=== PATIENT | female | born 1955 | race Caucasian/White ===

== ENCOUNTER 2021-05-06 10:22 | Observation (INO) | payer MEDICARE ==
[2021-05-06] MEDS ORDERED: Ketorolac 15 MG/ML SDV IVPUSH ONE (10:38)
[2021-05-06] MEDS ORDERED: Dextrose 5%-Lactated Ringers 1,000 ML IV SCH (10:45)
[2021-05-06 11:23] LABS: CORONAVIRUS COVID-19 NAA POSITIVE (NEGATIVE); INFLUENZA A NAA NEGATIVE (NEGATIVE); INFLUENZA B NAA NEGATIVE (NEGATIVE)
--- NOTE | 2021-05-06 11:26 | CR ---
INDICATION: Hypoxia TECHNIQUE: Single view chest. FINDINGS: Low lung volumes. Right hemidiaphragm elevated. Normal cardiac mediastinal silhouette. Right peripheral lower lobe increased attenuation could be related to overlying soft tissues versus infiltrate. Left lung is clear no effusion or pneumothorax. Dictated by Megan Gambino MD @ 05/06/2021 11:25:33 AM (Electronically Signed)
--- NOTE | 2021-05-06 11:30 | EDM.PDOC ---
ED HPI GENERAL MEDICAL PROBLEM - General Chief Complaint: General Time Seen by Provider: 05/06/21 10:28 - History of Present Illness INITIAL COMMENTS - FREE TEXT/NARRATIVE: CHIEF COMPLAINT(S): Weakness HISTORY OF PRESENT ILLNESS: This is a 65-year-old woman without any significant past medical history who comes to the emergency department with a chief complaint of weakness. The patient states that for the last 10 days she has been experiencing weakness. She states that she has not been able to tolerate any food and feels extremely weak. She denies any chest pain or shortness of breath but states that she does have some body aches. She states that she has had continued headache which is bifrontal not associated with any numbness, tingling, weakness, vision changes. She states that she has had some occasional chills and some nonbloody diarrhea. She states that she feels like she just does not want to eat or drink. She has not yet tried anything for headache. There is no neck stiffness or pain. She denies any IV drug use. She states that she has not received her Covid vaccine. She does not know if she has been exposed to Covid. REVIEW OF SYSTEMS: Constitutional: Positive for weakness and chills. Denies fever Eyes: Denies eye pain Ears, Nose, Mouth, & Throat: Denies earache Cardiovascular: Denies chest pain Respiratory: Denies shortness of breath Gastrointestinal: Positive for anorexia, diarrhea. Denies vomiting genitourinary: Denies hematuria, dysuria Skin:Denies a rash MSK: Positive for body aches Neurological: Positive for headache. Denies vision changes, numbness, tingling, weakness Psychiatric: Denies depression PAST MEDICAL HISTORY: As per history of present illness and as reviewed below otherwise noncontributory. SURGICAL HISTORY: As per history of present illness and as reviewed below otherwise noncontributory. SOCIAL HISTORY: As per history of present illness and as reviewed below otherwise noncontributory. FAMILY HISTORY: As per history of present illness and as reviewed below otherwise noncontributory. EXAMINATION OF ORGAN SYSTEMS/BODY AREAS: Constitutional: Blood pressure was 135/66, heart rate 88, respiratory rate 20 with an oxygen saturation of 94% on room air. Temperature 36.3 General: Middle-aged woman who does not appear to be acute distress Psychiatric: Appropriate mood and affect. Eyes: No scleral icterus or conjunctival erythema ENMT: Dry mucous membranes. No pharyngeal erythema. No stridor, drooling, trismus. Cardiovascular: Regular, rate, and rhythm. No gallops, murmurs, or rubs. Bilateral upper extremity pulses symmetric and intact. No peripheral edema. No JVD. Respiratory: Lungs clear to auscultation bilaterally. No wheezes, rales, or rhonchi. Gastrointestinal: Soft, non-tender, non-distended. Normoactive bowel sounds Genitourinary: No suprapubic tenderness Musculoskeletal: Normal range of motion. Skin: No lesions or abrasions. Neurological: Alert, GCS 15 strength and sensation grossly intact in upper and lower extremities bilaterally MEDICAL DECISION MAKING AND COURSE IN THE ED WITH INTERPRETATION/REVIEW OF DIAGNOSTIC STUDIES: This is a 65-year-old woman with a past medical history of hypothyroidism who comes to the emergency department with weakness including headache, chills, diarrhea and anorexia who is borderline hypoxic and appears clinically dehydrated. Will obtain CBC, CMP, troponin, EKG, TSH and obtain a Covid and influenza swab. Obtain a chest x-ray. EKG was unremarkable. We will provide the patient with Toradol for pain relief and 1 L of D5 normal saline. Laboratory: CBC reveals thrombocytopenia at 149. CMP reveals hypocalcemia at 7.3, mild elevation AST at 40, hypoalbuminemia at 2.9. Troponin is negative. TSH is normal. Covid is positive. Influenza is negative. The radiological images were viewed by myself along with reading the report from the radiologist. Chest x-ray does not reveal any acute cardiopulmonary process. There is right peripheral lower lobe increased attenuation could be related to overlying soft tissue versus infiltrate. After labs I did reevaluate the patient. Her oxygen saturation continued to remain stable. I did discuss with her at this time that she is Covid positive and that I would like her to try to tolerate some p.o. She was amenable to this plan. On reevaluation the patient states that she does not have any interest in trying to drink any fluids. At this time given that the patient is unable to tolerate fluids and is weak from COVID-19 I did discuss observation admission with the patient. She was amenable to this plan. I contacted Dr. Watson who accepted the patient for observation admission DISPOSITION: The patient is admitted for observation in stable condition CONDITION: Fair PROCEDURES: None FINAL IMPRESSION(S)/DIAGNOSES: 1. Acute COVID-19 2. Acute anorexia 3. Acute diarrhea Mikael Sheridan M.D. 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 Neurological History: Reports: None Psychiatric History: Reports: None Endocrine/Metabolic History: Reports: None Hematologic History: Reports: None Immunologic History: Reports: None Oncologic (Cancer) History: Reports: None Dermatologic History: Reports: None - Infectious Disease History Infectious Disease History: Reports: None - Past Surgical History Head Surgeries/Procedures: Reports: None Social & Family History - Family History Family Medical History: No Pertinent Family History - Tobacco Use Tobacco Use Status *Q: Never Tobacco User Second Hand Smoke Exposure: No - Caffeine Use Caffeine Use: Reports: None - Recreational Drug Use Recreational Drug Use: No ED ROS GENERAL - Review of Systems Review Of Systems: See Below ED EXAM, GENERAL - Physical Exam Exam: See Below Course - Vital Signs Last Recorded V/S: Last Vital Signs Temp 36.7 C 05/06/21 19:48 Pulse 63 05/06/21 19:48 Resp 18 05/06/21 19:48 BP 115/56 L 05/06/21 19:48 Pulse Ox 95 05/06/21 19:48 - Orders/Labs/Meds Orders: Active Orders 24 hr Category Date Time Status Dextrose 5%-Lactated Ringers 1,000 ml Med 05/06/21 10:45 Active IV ASDIRECTED Medication Orders Acetaminophen (Acetaminophen 325 Mg Tab) 650 mg PO Q4H PRN PRN Reason: Pain (Mild 1-3)/fever Last Admin: 05/06/21 16:51 Dose: 650 mg Documented by: BHAVIN Albuterol/Ipratropium (Albuterol/Ipratropium 3.0-0.5 Mg/3 Ml Neb Soln) 3 ml NEB Q4HRRT PRN PRN Reason: Shortness of Breath Enoxaparin Sodium (Enoxaparin 40 Mg/0.4 Ml Syringe) 40 mg SUBCUT Q24H [facility] Last Admin: 05/06/21 15:50 Dose: 40 mg Documented by: BHAVIN Guaifenesin/Dextromethorphan (Guaifenesin/Dextromethorphan 100-10 Mg/5 Ml Soln 10 Ml Cup) 10 ml PO Q4H PRN PRN Reason: Cough Dextrose/Lactated Ringer's (Dextrose 5%-Lactated Ringers) 1,000 mls @ 999 mls/hr IV ASDIRECTED [facility] Last Admin: 05/06/21 11:39 Dose: 999 mls/hr Documented by: BRADFORD Ondansetron HCl (Ondansetron 4 Mg/2 Ml Sdv) 4 mg IVPUSH Q4H PRN PRN Reason: Nausea/Vomiting Last Admin: 05/06/21 15:50 Dose: 4 mg Documented by: BHAVIN Pantoprazole Sodium (Pantoprazole 40 Mg Vial) 40 mg IV Q24H [facility] Last Admin: 05/06/21 15:50 Dose: 40 mg Documented by: BHAVIN Labs: Laboratory Tests 05/06/21 05/06/21 05/06/21 Range/Units 10:29 10:29 10:29 WBC 4.97 (4.0-11.0) K/uL RBC 4.49 (4.30-5.90) M/uL Hgb 13.9 (12.0-16.0) g/dL Hct 40.2 (36.0-46.0) % MCV 89.5 (80.0-98.0) fL MCH 31.0 (27.0-32.0) pg MCHC 34.6 (31.0-37.0) g/dL RDW Std Deviation 45.1 (28.0-62.0) fl RDW Coeff of Hiral 14 (11.0-15.0) % Plt Count 149 L (150-400) K/uL MPV 9.60 (7.40-12.00) fL Neut % (Auto) 60.7 (48.0-80.0) % Lymph % (Auto) 29.2 (16.0-40.0) % [place] % (Auto) 9.9 (0.0-15.0) % Eos % (Auto) 0.0 (0.0-7.0) % Baso % (Auto) 0.2 (0.0-1.5) % Neut # (Auto) 3.0 (1.4-5.7) K/uL Lymph # (Auto) 1.5 (0.6-2.4) K/uL [place] # (Auto) 0.5 (0.0-0.8) K/uL Eos # (Auto) 0.0 (0.0-0.7) K/uL Baso # (Auto) 0.0 (0.0-0.1) K/uL Nucleated RBC % 0.0 /100WBC Nucleated RBCs # 0 K/uL Sodium 141 (136-145) mmol/L Potassium 3.5 (3.5-5.1) mmol/L Chloride 104 (98-107) mmol/L Carbon Dioxide 25.6 (21.0-32.0) mmol/L BUN 9 (7.0-18.0) mg/dL Creatinine 0.6 (0.6-1.0) mg/dL Est Cr Clr Drug Dosing 75.26 mL/min Estimated GFR (MDRD) > 60.0 ml/min Glucose 101 (74-106) mg/dL Calcium 7.3 L (8.5-10.1) mg/dL Magnesium 2.1 (1.8-2.4) mg/dL Total Bilirubin 0.3 (0.2-1.0) mg/dL AST 40 H (15-37) IU/L ALT 39 (14-63) IU/L Alkaline Phosphatase 62 (46-116) U/L Troponin I < 0.050 (0.000-0.056) ng/mL Total Protein 6.7 (6.4-8.2) g/dL Albumin 2.9 L (3.4-5.0) g/dL Globulin 3.8 (2.6-4.0) g/dL Albumin/Globulin Ratio 0.8 L (0.9-1.6) Lipase 94 (73-393) U/L Vitamin D 25-Hydroxy (30.0-100.0) ng/mL TSH, Ultra Sensitive 3.38 (0.36-3.74) uIU/mL Influenza Type A RNA (NEGATIVE) Influenza Type B RNA (NEGATIVE) SARS-CoV-2 RNA ([facility]) (NEGATIVE) 05/06/21 05/06/21 Range/Units 10:29 10:30 WBC (4.0-11.0) K/uL RBC (4.30-5.90) M/uL Hgb (12.0-16.0) g/dL Hct (36.0-46.0) % MCV (80.0-98.0) fL MCH (27.0-32.0) pg MCHC (31.0-37.0) g/dL RDW Std Deviation (28.0-62.0) fl RDW Coeff of Hiral (11.0-15.0) % Plt Count (150-400) K/uL MPV (7.40-12.00) fL Neut % (Auto) (48.0-80.0) % Lymph % (Auto) (16.0-40.0) % [place] % (Auto) (0.0-15.0) % Eos % (Auto) (0.0-7.0) % Baso % (Auto) (0.0-1.5) % Neut # (Auto) (1.4-5.7) K/uL Lymph # (Auto) (0.6-2.4) K/uL [place] # (Auto) (0.0-0.8) K/uL Eos # (Auto) (0.0-0.7) K/uL Baso # (Auto) (0.0-0.1) K/uL Nucleated RBC % /100WBC Nucleated RBCs # K/uL Sodium (136-145) mmol/L Potassium (3.5-5.1) mmol/L Chloride (98-107) mmol/L Carbon Dioxide (21.0-32.0) mmol/L BUN (7.0-18.0) mg/dL Creatinine (0.6-1.0) mg/dL Est Cr Clr Drug Dosing mL/min Estimated GFR (MDRD) ml/min Glucose (74-106) mg/dL Calcium (8.5-10.1) mg/dL Magnesium (1.8-2.4) mg/dL Total Bilirubin (0.2-1.0) mg/dL AST (15-37) IU/L ALT (14-63) IU/L Alkaline Phosphatase (46-116) U/L Troponin I (0.000-0.056) ng/mL Total Protein (6.4-8.2) g/dL Albumin (3.4-5.0) g/dL Globulin (2.6-4.0) g/dL Albumin/Globulin Ratio (0.9-1.6) Lipase (73-393) U/L Vitamin D 25-Hydroxy 22.9 L (30.0-100.0) ng/mL TSH, Ultra Sensitive (0.36-3.74) uIU/mL Influenza Type A RNA NEGATIVE (NEGATIVE) Influenza Type B RNA NEGATIVE (NEGATIVE) SARS-CoV-2 RNA ([facility]) POSITIVE H (NEGATIVE) Meds: Medications Generic Name Dose Route Start Last Admin Trade Name Freq PRN Reason Stop Dose Admin Acetaminophen 650 mg 05/06/21 15:10 05/06/21 16:51 Acetaminophen 325 Mg Tab PO 650 mg Q4H PRN Administration Pain (Mild 1-3)/fever Albuterol/Ipratropium 3 ml 05/06/21 15:13 Albuterol/Ipratropium 3.0-0.5 Mg/3 Ml Neb Soln NEB Q4HRRT PRN Shortness of Breath Enoxaparin Sodium 40 mg 05/06/21 16:00 05/06/21 15:50 Enoxaparin 40 Mg/0.4 Ml Syringe SUBCUT 40 mg Q24H KIMBERLEY Administration Guaifenesin/Dextromethorphan 10 ml 05/06/21 15:14 Guaifenesin/Dextromethorphan 100-10 Mg/5 Ml Soln 10 Ml Cup PO Q4H PRN Cough Dextrose/Lactated Ringer's 1,000 mls @ 999 mls/hr 05/06/21 10:45 05/06/21 11:39 Dextrose 5%-Lactated Ringers IV 999 mls/hr ASDIRECTED KIMBERLEY Administration Ondansetron HCl 4 mg 05/06/21 15:13 05/06/21 15:50 Ondansetron 4 Mg/2 Ml Sdv IVPUSH 4 mg Q4H PRN Administration Nausea/Vomiting Pantoprazole Sodium 40 mg 05/06/21 16:00 05/06/21 15:50 Pantoprazole 40 Mg Vial IV 40 mg Q24H KIMBERLEY Administration Discontinued Medications Generic Name Dose Route Start Last Admin Trade Name Lionel PRN Reason Stop Dose Admin Lactated Ringer's 1,000 mls @ 150 mls/hr 05/06/21 13:30 05/06/21 15:51 Ringers, Lactated IV 150 mls/hr ASDIRECTED KIMBERLEY Administration Ketorolac Tromethamine 15 mg 05/06/21 10:38 05/06/21 11:39 Ketorolac 15 Mg/Ml Sdv IVPUSH 05/06/21 10:39 15 mg ONETIME ONE Administration Departure - Departure Time of Disposition: 13:13 Disposition: Home, Self-Care 01 Condition: Fair Clinical Impression: COVID-19 - Discharge Information *PRESCRIPTION DRUG MONITORING PROGRAM REVIEWED*: No *COPY OF PRESCRIPTION DRUG MONITORING REPORT IN PATIENT EUNICE: No Sepsis Event Note (ED) - Evaluation Sepsis Screening Result: No Definite Risk - Focused Exam Vital Signs: Vital Signs Temp Pulse Resp BP Pulse Ox 05/06/21 12:50 36.8 C 84 20 121/71 96 05/06/21 11:40 68 20 124/71 96 05/06/21 10:27 36.3 C 88 20 135/66 94 L - My Orders Last 24 Hours: My Active Orders 05/06/21 10:45 Dextrose 5%-Lactated Ringers 1,000 ml IV ASDIRECTED - Assessment/Plan Last 24 Hours: My Active Orders 05/06/21 10:45 Dextrose 5%-Lactated Ringers 1,000 ml IV ASDIRECTED
--- NOTE | 2021-05-06 11:31 | PCM.EKG ---
#1 Interpretation EKG Date: 05/06/21 Time: 11:23 Rhythm: NSR Rate (Beats/Min): 73 [place]: Normal P-Wave: Present QRS: Normal ST-T: Normal QT: Normal Comparison: NA - No Prior EKG EKG Interpretation Comments: Sinus Rhythm
[2021-05-06 11:35] LABS: BLOOD UREA NITROGEN,BUN 9 mg/dL (7.0-18.0); CARBON DIOXIDE,CO2 25.6 mmol/L (21.0-32.0); CHLORIDE,CL 104 mmol/L (98-107); GLUCOSE RANDOM 101 mg/dL (74-106); LIPASE 94 U/L (73-393); POTASSIUM,K 3.5 mmol/L (3.5-5.1); SODIUM,NA 141 mmol/L (136-145)
[2021-05-06] MEDS ORDERED: Lactated Ringers 1,000 ML IV SCH (13:30)
--- NOTE | 2021-05-06 14:47 | PCM.HP.2 ---
H&P History of Present Illness - General Date of Service: 05/06/21 Admit Problem/Dx: Admission Diagnosis/Problem Admission Diagnosis/Problem Weakness - History of Present Illness Initial Comments - Free Text/Narative: 65-year-old female presents to the ED with complaints of fatigue and poor oral intake. Patient admitted to med/surg for intractable nausea and vomiting, dehydration, COVID-19 infection. Patient states attending her 's family reunion "over a week ago " and may have gotten covid infection at that time. On admission patient states 10-day history of headache, chills, vomiting, diarrhea, cough, headache. Patient also states poor appetite with weight loss. Patient states yesterday she had 3 bites of a sandwich which she had to "force down". Patient has been tolerating oral liquids but states that not drinking enough. Patient denies chest pain, shortness of breath. Patient's only past medical includes hypothyroidism treated with levothyroxine. Patient has no recent history of smoking. Patient denies cardiovascular, respiratory, diseases. ER course- Patient received 1 L LR, 1 L D5-LR, IV Toradol 15mg X 1. Laboratory- WBC 4.9, hemoglobin 13.9, platelet 149, hematocrit 40.2, sodium 141, potassium 3.5, BUN 9, creatinine 0.6, magnesium 2.1, AST 40, ALT 39, albumin 2.9, TSH 3. 38. Chest x-ray impression- Low lung volumes, right hemidiaphragm elevated. Right peripheral lower lobe increased attenuation could be related to overlying soft tissue versus infiltrate. 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 Neurological History: Reports: None Psychiatric History: Reports: None Endocrine/Metabolic History: Reports: None Hematologic History: Reports: None Immunologic History: Reports: None Oncologic (Cancer) History: Reports: None Dermatologic History: Reports: None - Infectious Disease History Infectious Disease History: Reports: None - Past Surgical History Head Surgeries/Procedures: Reports: None Social & Family History - Family History Family Medical History: No Pertinent Family History - Tobacco Use Tobacco Use Status *Q: Never Tobacco User Second Hand Smoke Exposure: No - Caffeine Use Caffeine Use: Reports: None - Recreational Drug Use Recreational Drug Use: No H&P Review of Systems - Review of Systems: Review Of Systems: See Below General: Reports: Chills, Weakness, Fatigue, Decreased Appetite, Weight Loss Pulmonary: Reports: Cough. Denies: Shortness of Breath, Wheezing Cardiovascular: Denies: Chest Pain, Palpitations, Edema Gastrointestinal: Reports: Decreased Appetite, Nausea, Vomiting. Denies: Abd ominal Pain, Diarrhea Neurological: Reports: Headache. Denies: Confusion, Dizziness Exam - Exam Exam: See Below - Vital Signs Vital Signs: Last Vital Signs Temp 97.4 F 05/06/21 10:27 Pulse 68 05/06/21 11:40 Resp 20 05/06/21 11:40 BP 124/71 05/06/21 11:40 Pulse Ox 96 05/06/21 11:40 Weight: 150 lb - Exam General: Alert, Oriented Lungs: Clear to Auscultation, Normal Respiratory Effort Cardiovascular: Regular Rate, Regular Rhythm GI/Abdominal Exam: Soft, Non-Tender, No Distention Extremities: No Pedal Edema Neuro Extensive - Mental Status: Alert Psychiatric: Alert - Patient Data Lab Results Last 24 hrs: Laboratory Results - last 24 hr 05/06/21 05/06/21 05/06/21 Range/Units 10:29 10:29 10:29 WBC 4.97 (4.0-11.0) K/uL RBC 4.49 (4.30-5.90) M/uL Hgb 13.9 (12.0-16.0) g/dL Hct 40.2 (36.0-46.0) % MCV 89.5 (80.0-98.0) fL MCH 31.0 (27.0-32.0) pg MCHC 34.6 (31.0-37.0) g/dL RDW Std Deviation 45.1 (28.0-62.0) fl RDW Coeff of Hiral 14 (11.0-15.0) % Plt Count 149 L (150-400) K/uL MPV 9.60 (7.40-12.00) fL Neut % (Auto) 60.7 (48.0-80.0) % Lymph % (Auto) 29.2 (16.0-40.0) % [place] % (Auto) 9.9 (0.0-15.0) % Eos % (Auto) 0.0 (0.0-7.0) % Baso % (Auto) 0.2 (0.0-1.5) % Neut # (Auto) 3.0 (1.4-5.7) K/uL Lymph # (Auto) 1.5 (0.6-2.4) K/uL [place] # (Auto) 0.5 (0.0-0.8) K/uL Eos # (Auto) 0.0 (0.0-0.7) K/uL Baso # (Auto) 0.0 (0.0-0.1) K/uL Nucleated RBC % 0.0 /100WBC Nucleated RBCs # 0 K/uL Sodium 141 (136-145) mmol/L Potassium 3.5 (3.5-5.1) mmol/L Chloride 104 (98-107) mmol/L Carbon Dioxide 25.6 (21.0-32.0) mmol/L BUN 9 (7.0-18.0) mg/dL Creatinine 0.6 (0.6-1.0) mg/dL Est Cr Clr Drug Dosing 75.26 mL/min Estimated GFR (MDRD) > 60.0 ml/min Glucose 101 (74-106) mg/dL Calcium 7.3 L (8.5-10.1) mg/dL Magnesium 2.1 (1.8-2.4) mg/dL Total Bilirubin 0.3 (0.2-1.0) mg/dL AST 40 H (15-37) IU/L ALT 39 (14-63) IU/L Alkaline Phosphatase 62 (46-116) U/L Troponin I < 0.050 (0.000-0.056) ng/mL Total Protein 6.7 (6.4-8.2) g/dL Albumin 2.9 L (3.4-5.0) g/dL Globulin 3.8 (2.6-4.0) g/dL Albumin/Globulin Ratio 0.8 L (0.9-1.6) Lipase 94 (73-393) U/L TSH, Ultra Sensitive 3.38 (0.36-3.74) uIU/mL Influenza Type A RNA (NEGATIVE) Influenza Type B RNA (NEGATIVE) SARS-CoV-2 RNA ([facility]) (NEGATIVE) 05/06/21 Range/Units 10:30 WBC (4.0-11.0) K/uL RBC (4.30-5.90) M/uL Hgb (12.0-16.0) g/dL Hct (36.0-46.0) % MCV (80.0-98.0) fL MCH (27.0-32.0) pg MCHC (31.0-37.0) g/dL RDW Std Deviation (28.0-62.0) fl RDW Coeff of Hiral (11.0-15.0) % Plt Count (150-400) K/uL MPV (7.40-12.00) fL Neut % (Auto) (48.0-80.0) % Lymph % (Auto) (16.0-40.0) % [place] % (Auto) (0.0-15.0) % Eos % (Auto) (0.0-7.0) % Baso % (Auto) (0.0-1.5) % Neut # (Auto) (1.4-5.7) K/uL Lymph # (Auto) (0.6-2.4) K/uL [place] # (Auto) (0.0-0.8) K/uL Eos # (Auto) (0.0-0.7) K/uL Baso # (Auto) (0.0-0.1) K/uL Nucleated RBC % /100WBC Nucleated RBCs # K/uL Sodium (136-145) mmol/L Potassium (3.5-5.1) mmol/L Chloride (98-107) mmol/L Carbon Dioxide (21.0-32.0) mmol/L BUN (7.0-18.0) mg/dL Creatinine (0.6-1.0) mg/dL Est Cr Clr Drug Dosing mL/min Estimated GFR (MDRD) ml/min Glucose (74-106) mg/dL Calcium (8.5-10.1) mg/dL Magnesium (1.8-2.4) mg/dL Total Bilirubin (0.2-1.0) mg/dL AST (15-37) IU/L ALT (14-63) IU/L Alkaline Phosphatase (46-116) U/L Troponin I (0.000-0.056) ng/mL Total Protein (6.4-8.2) g/dL Albumin (3.4-5.0) g/dL Globulin (2.6-4.0) g/dL Albumin/Globulin Ratio (0.9-1.6) Lipase (73-393) U/L TSH, Ultra Sensitive (0.36-3.74) uIU/mL Influenza Type A RNA NEGATIVE (NEGATIVE) Influenza Type B RNA NEGATIVE (NEGATIVE) SARS-CoV-2 RNA ([place]) POSITIVE H (NEGATIVE) Result Diagrams: 05/06/21 10:29 05/06/21 10:29 Sepsis Event Note - Evaluation Sepsis Screening Result: No Definite Risk - Focused Exam Vital Signs: Vital Signs Temp Pulse Resp BP Pulse Ox 05/06/21 11:40 68 20 124/71 96 05/06/21 10:27 97.4 F 88 20 135/66 94 L - Problem List (1) Hypothyroidism SNOMED Code(s): 86931240 ICD Code: E03.9 - HYPOTHYROIDISM, UNSPECIFIED Status: Acute Current Visit: Yes (2) Nausea & vomiting SNOMED Code(s): 67361392 ICD Code: R11.2 - NAUSEA WITH VOMITING, UNSPECIFIED Status: Acute Current Visit: Yes (3) Dehydration SNOMED Code(s): 67728564 ICD Code: E86.0 - DEHYDRATION Status: Acute Current Visit: Yes (4) COVID-19 SNOMED Code(s): 073478571 ICD Code: U07.1 - COVID-19 Status: Acute Current Visit: Yes Problem List Initiated/Reviewed/Updated: Yes Orders Last 24hrs: Active Orders 24 hr Category Date Time Status Admission Status [Patient Status] [ADT] Stat ADT 05/06/21 13:19 Active Dextrose 5%-Lactated Ringers 1,000 ml Med 05/06/21 10:45 Active IV ASDIRECTED Lactated Ringers [Ringers, Lactated] 1,000 ml Med 05/06/21 13:30 Active IV ASDIRECTED Medication Orders Dextrose/Lactated Ringer's (Dextrose 5%-Lactated Ringers) 1,000 mls @ 999 mls/hr IV ASDIRECTED [facility] Last Admin: 05/06/21 11:39 Dose: 999 mls/hr Documented by: BRADFORD Lactated Ringer's (Ringers, Lactated) 1,000 mls @ 150 mls/hr IV ASDIRECTED [facility]IM[facility] Assessment/Plan Comment:: COVID-19 infectionpatient is not hypoxic, 96% O2 saturation on room air. Will defer remdesivir, dexamethasone. DuoNeb prn, Lovenox 40 mg subQ q24hr, Tylenol prn, Robitussin DM for cough Intractable nausea/vomiting-Zofran as needed, Protonix q24hr Dehydrationpatient has received 2 L fluid in the ER. Will assess fluid status and start fluids as needed due to COVID-19 infection. Encourage oral fluid intake. Monitor BMP Hypothyroidism-resume levothyroxine
[2021-05-06] MEDS ORDERED: Albuterol/Ipratropium 3.0-0.5 MG/3 ML Neb Soln NEB PRN (15:13)
[2021-05-06] MEDS ORDERED: guaiFENesin/Dextromethorphan 100-10 MG/5 ML Soln 10 ML Cup PO PRN (15:14)
[2021-05-06] MEDS: Pantoprazole 40 MG Vial IV SCH (15:50)
[2021-05-06] MEDS: Enoxaparin 40 MG/0.4 ML Syringe SUBCUT SCH (15:50)
[2021-05-06] MEDS: Ondansetron 4 MG/2 ML SDV IVPUSH PRN (15:50)
[2021-05-06] MEDS: Acetaminophen 325 MG Tab PO PRN (16:51)
[2021-05-07 06:28] LABS: BLOOD UREA NITROGEN,BUN 10 mg/dL (7.0-18.0); CARBON DIOXIDE,CO2 26.3 mmol/L (21.0-32.0); CHLORIDE,CL 106 mmol/L (98-107); GLUCOSE RANDOM 90 mg/dL (74-106); POTASSIUM,K 3.6 mmol/L (3.5-5.1); SODIUM,NA 142 mmol/L (136-145)
[2021-05-07] MEDS: Ondansetron 4 MG/2 ML SDV IVPUSH PRN ×3 (09:07→21:07)
[2021-05-07] MEDS: Cholecalciferol (Vitamin D3) 25 MCG Tab PO SCH (09:08)
[2021-05-07] MEDS ORDERED: Ketorolac 30 MG/ML SDV IVPUSH ONE (14:48)
[2021-05-07] MEDS ORDERED: diphenhydrAMINE 50 MG/ML SDV IVPUSH ONE (14:49)
[2021-05-07] MEDS ORDERED: Metoclopramide 10 MG/2 ML SDV IVPUSH ONE (14:49)
[2021-05-07] MEDS: Pantoprazole 40 MG Vial IV SCH (15:08)
[2021-05-07] MEDS: Enoxaparin 40 MG/0.4 ML Syringe SUBCUT SCH (15:10)
--- NOTE | 2021-05-07 17:40 | PCM.PN ---
<Olvin Santiago - Last Filed: 05/07/21 17:37> - General Info Date of Service: 05/07/21 Subjective Update: Patient states moderate headache overnight, still states nausea and vomiting this morning. Patient states that she would like to stay in the hospital as she currently cannot tolerate oral diet. Patient denies fever, chills, nausea, vomiting, chest pain, shortness of breath. - Review of Systems General: Denies: Fever, Chills Pulmonary: Denies: Shortness of Breath, Cough Cardiovascular: Denies: Chest Pain, Dyspnea on Exertion, Edema Gastrointestinal: Reports: Decreased Appetite, Nausea, Vomiting. Denies: Abdominal Pain, Diarrhea Neurological: Reports: Headache. Denies: Confusion, Dizziness - Patient Data Vitals - Most Recent: Last Vital Signs Temp 97.7 F 05/07/21 16:00 Pulse 57 L 05/07/21 16:00 Resp 18 05/07/21 16:00 BP 119/58 L 05/07/21 16:00 Pulse Ox 95 05/07/21 16:00 Weight - Most Recent: 68.81 kg I&O - Last 24 Hours: Intake & Output 05/07/21 05/07/21 05/07/21 06:59 14:59 22:59 Intake Total 400 520 Output Total 500 550 Balance -100 -30 Lab Results Last 24 Hours: Laboratory Results - last 24 hr 05/06/21 05/07/21 05/07/21 Range/Units 10:29 05:15 05:15 WBC 4.62 (4.0-11.0) K/uL RBC 4.52 (4.30-5.90) M/uL Hgb 14.1 (12.0-16.0) g/dL Hct 41.3 (36.0-46.0) % MCV 91.4 (80.0-98.0) fL MCH 31.2 (27.0-32.0) pg MCHC 34.1 (31.0-37.0) g/dL RDW Std Deviation 44.1 (28.0-62.0) fl RDW Coeff of Hiral 13 (11.0-15.0) % Plt Count 151 (150-400) K/uL MPV 9.70 (7.40-12.00) fL Add Manual Diff YES Neutrophils % (Manual) 49 (48.0-80.0) % Band Neutrophils % 8 % Lymphocytes % (Manual) 37 (16.0-40.0) % Monocytes % (Manual) 6 (0.0-15.0) % Absolute Seg Neuts 2.3 (1.4-5.7) Band Neutrophils # 0.4 Lymphocytes # (Manual) 1.7 (0.6-2.4) Monocytes # (Manual) 0.3 (0.0-0.8) Sodium 142 (136-145) mmol/L Potassium 3.6 (3.5-5.1) mmol/L Chloride 106 (98-107) mmol/L Carbon Dioxide 26.3 (21.0-32.0) mmol/L BUN 10 (7.0-18.0) mg/dL Creatinine 0.6 (0.6-1.0) mg/dL Est Cr Clr Drug Dosing 75.26 mL/min Estimated GFR (MDRD) > 60.0 ml/min Glucose 90 (74-106) mg/dL Calcium 7.6 L (8.5-10.1) mg/dL Vitamin D 25-Hydroxy 22.9 L (30.0-100.0) ng/mL Med Orders - Current: Current Medications Acetaminophen (Acetaminophen 325 Mg Tab) 650 mg PO Q4H PRN PRN Reason: Pain (Mild 1-3)/fever Last Admin: 05/06/21 16:51 Dose: 650 mg Documented by: Albuterol/Ipratropium (Albuterol/Ipratropium 3.0-0.5 Mg/3 Ml Neb Soln) 3 ml NEB Q4HRRT PRN PRN Reason: Shortness of Breath Cholecalciferol (Cholecalciferol (Vitamin D3) 25 Mcg Tab) 50 mcg PO DAILY [facility] Last Admin: 05/07/21 09:08 Dose: 50 mcg Documented by: Enoxaparin Sodium (Enoxaparin 40 Mg/0.4 Ml Syringe) 40 mg SUBCUT Q24H [facility] Last Admin: 05/07/21 15:10 Dose: 40 mg Documented by: Guaifenesin/Dextromethorphan (Guaifenesin/Dextromethorphan 100-10 Mg/5 Ml Soln 10 Ml Cup) 10 ml PO Q4H PRN PRN Reason: Cough Dextrose/Lactated Ringer's (Dextrose 5%-Lactated Ringers) 1,000 mls @ 999 mls/hr IV ASDIRECTED [facility] Last Admin: 05/06/21 11:39 Dose: 999 mls/hr Documented by: Ondansetron HCl (Ondansetron 4 Mg/2 Ml Sdv) 4 mg IVPUSH Q4H PRN PRN Reason: Nausea/Vomiting Last Admin: 05/07/21 13:26 Dose: 4 mg Documented by: Pantoprazole Sodium (Pantoprazole 40 Mg Vial) 40 mg IV Q24H [facility] Last Admin: 05/07/21 15:08 Dose: 40 mg Documented by: Discontinued Medications Diphenhydramine HCl (Diphenhydramine 50 Mg/Ml Sdv) 25 mg IVPUSH ONETIME ONE Stop: 05/07/21 14:50 Last Admin: 05/07/21 15:08 Dose: 25 mg Documented by: Lactated Ringer's (Ringers, Lactated) 1,000 mls @ 150 mls/hr IV ASDIRECTED [facility] Last Admin: 05/06/21 15:51 Dose: 150 mls/hr Documented by: Ketorolac Tromethamine (Ketorolac 15 Mg/Ml Sdv) 15 mg IVPUSH ONETIME ONE Stop: 05/06/21 10:39 Last Admin: 05/06/21 11:39 Dose: 15 mg Documented by: Ketorolac Tromethamine (Ketorolac 30 Mg/Ml Sdv) 30 mg IVPUSH ONETIME ONE Stop: 05/07/21 14:49 Last Admin: 05/07/21 15:09 Dose: 30 mg Documented by: Metoclopramide HCl (Metoclopramide 10 Mg/2 Ml Sdv) 5 mg IVPUSH ONETIME ONE Stop: 05/07/21 14:50 Last Admin: 05/07/21 15:08 Dose: 5 mg Documented by: - Exam General: Alert, Oriented Lungs: Clear to Auscultation, Normal Respiratory Effort Cardiovascular: Regular Rate, Regular Rhythm GI/Abdominal Exam: Soft, Non-Tender Extremities: No Pedal Edema Psy/Mental Status: Alert - Patient Data Lab Results Last 24 hrs: Laboratory Results - last 24 hr 05/06/21 05/07/21 05/07/21 Range/Units 10:29 05:15 05:15 WBC 4.62 (4.0-11.0) K/uL RBC 4.52 (4.30-5.90) M/uL Hgb 14.1 (12.0-16.0) g/dL Hct 41.3 (36.0-46.0) % MCV 91.4 (80.0-98.0) fL MCH 31.2 (27.0-32.0) pg MCHC 34.1 (31.0-37.0) g/dL RDW Std Deviation 44.1 (28.0-62.0) fl RDW Coeff of Hiral 13 (11.0-15.0) % Plt Count 151 (150-400) K/uL MPV 9.70 (7.40-12.00) fL Add Manual Diff YES Neutrophils % (Manual) 49 (48.0-80.0) % Band Neutrophils % 8 % Lymphocytes % (Manual) 37 (16.0-40.0) % Monocytes % (Manual) 6 (0.0-15.0) % Absolute Seg Neuts 2.3 (1.4-5.7) Band Neutrophils # 0.4 Lymphocytes # (Manual) 1.7 (0.6-2.4) Monocytes # (Manual) 0.3 (0.0-0.8) Sodium 142 (136-145) mmol/L Potassium 3.6 (3.5-5.1) mmol/L Chloride 106 (98-107) mmol/L Carbon Dioxide 26.3 (21.0-32.0) mmol/L BUN 10 (7.0-18.0) mg/dL Creatinine 0.6 (0.6-1.0) mg/dL Est Cr Clr Drug Dosing 75.26 mL/min Estimated GFR (MDRD) > 60.0 ml/min Glucose 90 (74-106) mg/dL Calcium 7.6 L (8.5-10.1) mg/dL Vitamin D 25-Hydroxy 22.9 L (30.0-100.0) ng/mL Result Diagrams: 05/07/21 05:15 05/07/21 05:15 Sepsis Event Note - Evaluation Sepsis Screening Result: No Definite Risk - Focused Exam Vital Signs: Vital Signs Temp Pulse Resp BP Pulse Ox 05/07/21 16:00 97.7 F 57 L 18 119/58 L 95 05/07/21 13:28 97.7 F 63 12 121/59 L 94 L 05/07/21 10:08 98.8 F 69 18 114/59 L 94 L - Problem List & Annotations (1) Hypothyroidism SNOMED Code(s): 13276707 Code(s): E03.9 - HYPOTHYROIDISM, UNSPECIFIED Status: Acute (2) Nausea & vomiting SNOMED Code(s): 25181864 Code(s): R11.2 - NAUSEA WITH VOMITING, UNSPECIFIED Status: Acute (3) Dehydration SNOMED Code(s): 65799648 Code(s): E86.0 - DEHYDRATION Status: Acute (4) COVID-19 SNOMED Code(s): 826793384 Code(s): U07.1 - COVID-19 Status: Acute - Problem List Review Problem List Initiated/Reviewed/Updated: Yes - My Orders Last 24 Hours: My Active Orders 05/07/21 09:00 Cholecalciferol (Vitamin D3) [Vitamin D3] 50 mcg PO DAILY 05/07/21 Lunch Clear Liquid Diet [DIET] - Plan Plan:: COVID-19 infectionpatient is not hypoxic, 96% O2 saturation on room air. Will defer remdesivir, dexamethasone. DuoNeb prn, Lovenox 40 mg subQ q24hr, Tylenol prn, Robitussin DM for cough Intractable nausea/vomiting-Zofran as needed, Protonix q24hr Dehydrationpatient has received 2 L fluid in the ER. Will assess fluid status and start fluids as needed due to COVID-19 infection. Encourage oral fluid intake. Monitor BMP Hypothyroidism-resume levothyroxine Discharge pending based on patient's ability to tolerate oral intake overnight and tomorrow morning. <Ricco Sykes - Last Filed: 05/09/21 15:28> - Patient Data Vitals - Most Recent: Last Vital Signs Temp 35.8 C L 05/09/21 09:36 Pulse 65 05/09/21 09:36 Resp 20 05/09/21 09:36 BP 130/60 05/09/21 09:36 Pulse Ox 95 05/09/21 09:36 I&O - Last 24 Hours: Intake & Output 05/09/21 05/09/21 05/09/21 06:59 14:59 22:59 Intake Total 500 Output Total 400 Balance 100 Lab Results Last 24 Hours: Laboratory Results - last 24 hr 05/09/21 05/09/21 Range/Units 05:30 05:30 WBC 5.32 (4.0-11.0) K/uL RBC 4.47 (4.30-5.90) M/uL Hgb 13.6 (12.0-16.0) g/dL Hct 39.2 (36.0-46.0) % MCV 87.7 (80.0-98.0) fL MCH 30.4 (27.0-32.0) pg MCHC 34.7 (31.0-37.0) g/dL RDW Std Deviation 43.7 (28.0-62.0) fl RDW Coeff of Hiral 14 (11.0-15.0) % Plt Count 210 (150-400) K/uL MPV 9.20 (7.40-12.00) fL Neut % (Auto) 62.4 (48.0-80.0) % Lymph % (Auto) 28.2 (16.0-40.0) % [place] % (Auto) 9.2 (0.0-15.0) % Eos % (Auto) 0.0 (0.0-7.0) % Baso % (Auto) 0.2 (0.0-1.5) % Neut # (Auto) 3.3 (1.4-5.7) K/uL Lymph # (Auto) 1.5 (0.6-2.4) K/uL [place] # (Auto) 0.5 (0.0-0.8) K/uL Eos # (Auto) 0.0 (0.0-0.7) K/uL Baso # (Auto) 0.0 (0.0-0.1) K/uL Nucleated RBC % 0.0 /100WBC Nucleated RBCs # 0 K/uL Sodium 142 (136-145) mmol/L Potassium 3.4 L (3.5-5.1) mmol/L Chloride 104 (98-107) mmol/L Carbon Dioxide 28.5 (21.0-32.0) mmol/L BUN 7 (7.0-18.0) mg/dL Creatinine 0.5 L (0.6-1.0) mg/dL Est Cr Clr Drug Dosing 90.32 mL/min Estimated GFR (MDRD) > 60.0 ml/min Glucose 93 (74-106) mg/dL Calcium 7.5 L (8.5-10.1) mg/dL Magnesium 1.9 (1.8-2.4) mg/dL Med Orders - Current: Current Medications Discontinued Medications Acetaminophen (Acetaminophen 325 Mg Tab) 650 mg PO Q4H PRN PRN Reason: Pain (Mild 1-3)/fever Last Admin: 05/08/21 22:22 Dose: 650 mg Documented by: Albuterol/Ipratropium (Albuterol/Ipratropium 3.0-0.5 Mg/3 Ml Neb Soln) 3 ml NEB Q4HRRT PRN PRN Reason: Shortness of Breath Cholecalciferol (Cholecalciferol (Vitamin D3) 25 Mcg Tab) 50 mcg PO DAILY [facility] Last Admin: 05/08/21 09:59 Dose: 50 mcg Documented by: Diphenhydramine HCl (Diphenhydramine 50 Mg/Ml Sdv) 25 mg IVPUSH ONETIME ONE Stop: 05/07/21 14:50 Last Admin: 05/07/21 15:08 Dose: 25 mg Documented by: Enoxaparin Sodium (Enoxaparin 40 Mg/0.4 Ml Syringe) 40 mg SUBCUT Q24H [facility] Last Admin: 05/08/21 15:11 Dose: 40 mg Documented by: Guaifenesin/Dextromethorphan (Guaifenesin/Dextromethorphan 100-10 Mg/5 Ml Soln 10 Ml Cup) 10 ml PO Q4H PRN PRN Reason: Cough Dextrose/Lactated Ringer's (Dextrose 5%-Lactated Ringers) 1,000 mls @ 999 mls/hr IV ASDIRECTED [facility] Last Admin: 05/06/21 11:39 Dose: 999 mls/hr Documented by: Lactated Ringer's (Ringers, Lactated) 1,000 mls @ 150 mls/hr IV ASDIRECTED [facility] Last Admin: 05/06/21 15:51 Dose: 150 mls/hr Documented by: Ketorolac Tromethamine (Ketorolac 15 Mg/Ml Sdv) 15 mg IVPUSH ONETIME ONE Stop: 05/06/21 10:39 Last Admin: 05/06/21 11:39 Dose: 15 mg Documented by: Ketorolac Tromethamine (Ketorolac 30 Mg/Ml Sdv) 30 mg IVPUSH ONETIME ONE Stop: 05/07/21 14:49 Last Admin: 05/07/21 15:09 Dose: 30 mg Documented by: Metoclopramide HCl (Metoclopramide 10 Mg/2 Ml Sdv) 5 mg IVPUSH ONETIME ONE Stop: 05/07/21 14:50 Last Admin: 05/07/21 15:08 Dose: 5 mg Documented by: Metoclopramide HCl (Metoclopramide 10 Mg/2 Ml Sdv) 5 mg IVPUSH Q4H PRN PRN Reason: Nausea/Vomiting Last Admin: 05/09/21 06:51 Dose: 5 mg Documented by: Ondansetron HCl (Ondansetron 4 Mg/2 Ml Sdv) 4 mg IVPUSH Q4H PRN PRN Reason: Nausea/Vomiting Last Admin: 05/08/21 10:02 Dose: 4 mg Documented by: Pantoprazole Sodium (Pantoprazole 40 Mg Vial) 40 mg IV Q24H [facility] Last Admin: 05/08/21 15:10 Dose: 40 mg Documented by: Potassium Chloride (Potassium Chloride 20 Meq Tab.Er) 20 meq PO ONETIME ONE Stop: 05/09/21 09:01 - Patient Data Lab Results Last 24 hrs: Laboratory Results - last 24 hr 05/09/21 05/09/21 Range/Units 05:30 05:30 WBC 5.32 (4.0-11.0) K/uL RBC 4.47 (4.30-5.90) M/uL Hgb 13.6 (12.0-16.0) g/dL Hct 39.2 (36.0-46.0) % MCV 87.7 (80.0-98.0) fL MCH 30.4 (27.0-32.0) pg MCHC 34.7 (31.0-37.0) g/dL RDW Std Deviation 43.7 (28.0-62.0) fl RDW Coeff of Hiral 14 (11.0-15.0) % Plt Count 210 (150-400) K/uL MPV 9.20 (7.40-12.00) fL Neut % (Auto) 62.4 (48.0-80.0) % Lymph % (Auto) 28.2 (16.0-40.0) % Weston % (Auto) 9.2 (0.0-15.0) % Eos % (Auto) 0.0 (0.0-7.0) % Baso % (Auto) 0.2 (0.0-1.5) % Neut # (Auto) 3.3 (1.4-5.7) K/uL Lymph # (Auto) 1.5 (0.6-2.4) K/uL [place] # (Auto) 0.5 (0.0-0.8) K/uL Eos # (Auto) 0.0 (0.0-0.7) K/uL Baso # (Auto) 0.0 (0.0-0.1) K/uL Nucleated RBC % 0.0 /100WBC Nucleated RBCs # 0 K/uL Sodium 142 (136-145) mmol/L Potassium 3.4 L (3.5-5.1) mmol/L Chloride 104 (98-107) mmol/L Carbon Dioxide 28.5 (21.0-32.0) mmol/L BUN 7 (7.0-18.0) mg/dL Creatinine 0.5 L (0.6-1.0) mg/dL Est Cr Clr Drug Dosing 90.32 mL/min Estimated GFR (MDRD) > 60.0 ml/min Glucose 93 (74-106) mg/dL Calcium 7.5 L (8.5-10.1) mg/dL Magnesium 1.9 (1.8-2.4) mg/dL Result Diagrams: 05/09/21 05:30 05/09/21 05:30 Sepsis Event Note - Focused Exam Vital Signs: Vital Signs Temp Pulse Resp BP Pulse Ox 05/09/21 09:36 35.8 C L 65 20 130/60 95 05/09/21 04:10 36.7 C 60 20 134/63 95 - Plan Plan:: I have seen and evaluated the patient and agree with the residents note unless specified in my note
[2021-05-07] MEDS: Acetaminophen 325 MG Tab PO PRN (23:28)
[2021-05-08] MEDS: Ondansetron 4 MG/2 ML SDV IVPUSH PRN ×2 (04:00→10:02)
[2021-05-08] MEDS: Acetaminophen 325 MG Tab PO PRN ×2 (04:00→22:22)
[2021-05-08 07:38] LABS: BLOOD UREA NITROGEN,BUN 8 mg/dL (7.0-18.0); CARBON DIOXIDE,CO2 25.7 mmol/L (21.0-32.0); CHLORIDE,CL 105 mmol/L (98-107); GLUCOSE RANDOM 89 mg/dL (74-106); POTASSIUM,K 3.6 mmol/L (3.5-5.1); SODIUM,NA 142 mmol/L (136-145)
[2021-05-08] MEDS: Cholecalciferol (Vitamin D3) 25 MCG Tab PO SCH (09:59)
--- NOTE | 2021-05-08 14:03 | PCM.PN ---
<Olvin Santiago - Last Filed: 05/08/21 21:37> - General Info Date of Service: 05/08/21 Subjective Update: Patient states she was able to tolerate few bites of toast and small amount of eggs this morning. States she was able to tolerate to Jell-O cup yesterday. Patient still states nausea with dry heaving today most recently at breakfast time. Patient still says that she feels weak and she would like to stay 1 more night. - Review of Systems General: Denies: Fever, Chills Pulmonary: Reports: Pleuritic Chest Pain. Denies: Shortness of Breath, Cough Cardiovascular: Denies: Palpitations, Dyspnea on Exertion, Edema Gastrointestinal: Reports: Decreased Appetite, Nausea, Vomiting. Denies: Abdominal Pain, Diarrhea Neurological: Reports: Headache. Denies: Confusion, Dizziness Psychiatric: Reports: Confusion - Patient Data Vitals - Most Recent: Last Vital Signs Temp 98.6 F 05/08/21 12:36 Pulse 60 05/08/21 08:08 Resp 28 H 05/08/21 12:36 BP 138/65 05/08/21 12:36 Pulse Ox 96 05/08/21 12:36 Weight - Most Recent: 68.81 kg I&O - Last 24 Hours: Intake & Output 05/07/21 05/08/21 05/08/21 22:59 06:59 14:59 Intake Total 520 600 Output Total 550 800 Balance -30 -200 Lab Results Last 24 Hours: Laboratory Results - last 24 hr 05/08/21 05/08/21 Range/Units 05:45 05:45 WBC 4.78 (4.0-11.0) K/uL RBC 4.43 (4.30-5.90) M/uL Hgb 13.6 (12.0-16.0) g/dL Hct 39.5 (36.0-46.0) % MCV 89.2 (80.0-98.0) fL MCH 30.7 (27.0-32.0) pg MCHC 34.4 (31.0-37.0) g/dL RDW Std Deviation 45.1 (28.0-62.0) fl RDW Coeff of Hiral 14 (11.0-15.0) % Plt Count 190 (150-400) K/uL MPV 9.70 (7.40-12.00) fL Neut % (Auto) 64.7 (48.0-80.0) % Lymph % (Auto) 27.4 (16.0-40.0) % [place] % (Auto) 7.7 (0.0-15.0) % Eos % (Auto) 0.0 (0.0-7.0) % Baso % (Auto) 0.2 (0.0-1.5) % Neut # (Auto) 3.1 (1.4-5.7) K/uL Lymph # (Auto) 1.3 (0.6-2.4) K/uL [place] # (Auto) 0.4 (0.0-0.8) K/uL Eos # (Auto) 0.0 (0.0-0.7) K/uL Baso # (Auto) 0.0 (0.0-0.1) K/uL Nucleated RBC % 0.0 /100WBC Nucleated RBCs # 0 K/uL Sodium 142 (136-145) mmol/L Potassium 3.6 (3.5-5.1) mmol/L Chloride 105 (98-107) mmol/L Carbon Dioxide 25.7 (21.0-32.0) mmol/L BUN 8 (7.0-18.0) mg/dL Creatinine 0.6 (0.6-1.0) mg/dL Est Cr Clr Drug Dosing 75.26 mL/min Estimated GFR (MDRD) > 60.0 ml/min Glucose 89 (74-106) mg/dL Calcium 7.9 L (8.5-10.1) mg/dL Med Orders - Current: Current Medications Acetaminophen (Acetaminophen 325 Mg Tab) 650 mg PO Q4H PRN PRN Reason: Pain (Mild 1-3)/fever Last Admin: 05/08/21 04:00 Dose: 650 mg Documented by: Albuterol/Ipratropium (Albuterol/Ipratropium 3.0-0.5 Mg/3 Ml Neb Soln) 3 ml NEB Q4HRRT PRN PRN Reason: Shortness of Breath Cholecalciferol (Cholecalciferol (Vitamin D3) 25 Mcg Tab) 50 mcg PO DAILY [facility] Last Admin: 05/08/21 09:59 Dose: 50 mcg Documented by: Enoxaparin Sodium (Enoxaparin 40 Mg/0.4 Ml Syringe) 40 mg SUBCUT Q24H [facility] Last Admin: 05/07/21 15:10 Dose: 40 mg Documented by: Guaifenesin/Dextromethorphan (Guaifenesin/Dextromethorphan 100-10 Mg/5 Ml Soln 10 Ml Cup) 10 ml PO Q4H PRN PRN Reason: Cough Dextrose/Lactated Ringer's (Dextrose 5%-Lactated Ringers) 1,000 mls @ 999 mls/hr IV ASDIRECTED [facility] Last Admin: 05/06/21 11:39 Dose: 999 mls/hr Documented by: Metoclopramide HCl (Metoclopramide 10 Mg/2 Ml Sdv) 5 mg IVPUSH Q4H PRN PRN Reason: Nausea/Vomiting Pantoprazole Sodium (Pantoprazole 40 Mg Vial) 40 mg IV Q24H [facility] Last Admin: 05/07/21 15:08 Dose: 40 mg Documented by: Discontinued Medications Diphenhydramine HCl (Diphenhydramine 50 Mg/Ml Sdv) 25 mg IVPUSH ONETIME ONE Stop: 05/07/21 14:50 Last Admin: 05/07/21 15:08 Dose: 25 mg Documented by: Lactated Ringer's (Ringers, Lactated) 1,000 mls @ 150 mls/hr IV ASDIRECTED [facility] Last Admin: 05/06/21 15:51 Dose: 150 mls/hr Documented by: Ketorolac Tromethamine (Ketorolac 15 Mg/Ml Sdv) 15 mg IVPUSH ONETIME ONE Stop: 05/06/21 10:39 Last Admin: 05/06/21 11:39 Dose: 15 mg Documented by: Ketorolac Tromethamine (Ketorolac 30 Mg/Ml Sdv) 30 mg IVPUSH ONETIME ONE Stop: 05/07/21 14:49 Last Admin: 05/07/21 15:09 Dose: 30 mg Documented by: Metoclopramide HCl (Metoclopramide 10 Mg/2 Ml Sdv) 5 mg IVPUSH ONETIME ONE Stop: 05/07/21 14:50 Last Admin: 05/07/21 15:08 Dose: 5 mg Documented by: Ondansetron HCl (Ondansetron 4 Mg/2 Ml Sdv) 4 mg IVPUSH Q4H PRN PRN Reason: Nausea/Vomiting Last Admin: 05/08/21 10:02 Dose: 4 mg Documented by: - Exam General: Alert, Oriented Lungs: Clear to Auscultation, Normal Respiratory Effort Cardiovascular: Regular Rate, Regular Rhythm GI/Abdominal Exam: Soft, Non-Tender, No Distention. No: Distended, Guarding Extremities: No Pedal Edema Psy/Mental Status: Alert - Patient Data Lab Results Last 24 hrs: Laboratory Results - last 24 hr 05/08/21 05/08/21 Range/Units 05:45 05:45 WBC 4.78 (4.0-11.0) K/uL RBC 4.43 (4.30-5.90) M/uL Hgb 13.6 (12.0-16.0) g/dL Hct 39.5 (36.0-46.0) % MCV 89.2 (80.0-98.0) fL MCH 30.7 (27.0-32.0) pg MCHC 34.4 (31.0-37.0) g/dL RDW Std Deviation 45.1 (28.0-62.0) fl RDW Coeff of Hiral 14 (11.0-15.0) % Plt Count 190 (150-400) K/uL MPV 9.70 (7.40-12.00) fL Neut % (Auto) 64.7 (48.0-80.0) % Lymph % (Auto) 27.4 (16.0-40.0) % [place] % (Auto) 7.7 (0.0-15.0) % Eos % (Auto) 0.0 (0.0-7.0) % Baso % (Auto) 0.2 (0.0-1.5) % Neut # (Auto) 3.1 (1.4-5.7) K/uL Lymph # (Auto) 1.3 (0.6-2.4) K/uL [place] # (Auto) 0.4 (0.0-0.8) K/uL Eos # (Auto) 0.0 (0.0-0.7) K/uL Baso # (Auto) 0.0 (0.0-0.1) K/uL Nucleated RBC % 0.0 /100WBC Nucleated RBCs # 0 K/uL Sodium 142 (136-145) mmol/L Potassium 3.6 (3.5-5.1) mmol/L Chloride 105 (98-107) mmol/L Carbon Dioxide 25.7 (21.0-32.0) mmol/L BUN 8 (7.0-18.0) mg/dL Creatinine 0.6 (0.6-1.0) mg/dL Est Cr Clr Drug Dosing 75.26 mL/min Estimated GFR (MDRD) > 60.0 ml/min Glucose 89 (74-106) mg/dL Calcium 7.9 L (8.5-10.1) mg/dL Result Diagrams: 05/08/21 05:45 05/08/21 05:45 Sepsis Event Note - Evaluation Sepsis Screening Result: No Definite Risk - Focused Exam Vital Signs: Vital Signs Temp Pulse Resp BP Pulse Ox 05/08/21 12:36 98.6 F 28 H 138/65 96 05/08/21 08:08 97.6 F 60 18 133/69 96 05/08/21 03:57 96.9 F 64 16 138/64 96 - Problem List & Annotations (1) Hypothyroidism SNOMED Code(s): 85422692 Code(s): E03.9 - HYPOTHYROIDISM, UNSPECIFIED Status: Acute (2) Nausea & vomiting SNOMED Code(s): 88739136 Code(s): R11.2 - NAUSEA WITH VOMITING, UNSPECIFIED Status: Acute (3) Dehydration SNOMED Code(s): 12208093 Code(s): E86.0 - DEHYDRATION Status: Acute (4) COVID-19 SNOMED Code(s): 497091501 Code(s): U07.1 - COVID-19 Status: Acute - Problem List Review Problem List Initiated/Reviewed/Updated: Yes - My Orders Last 24 Hours: My Active Orders 05/08/21 Breakfast Soft Diet [DIET] 05/08/21 14:02 Metoclopramide [Reglan] 5 mg IVPUSH Q4H PRN - Plan Plan:: COVID-19 infectionpatient is not hypoxic, 96% O2 saturation on room air. Will defer remdesivir, dexamethasone. DuoNeb prn, Lovenox 40 mg subQ q24hr, Tylenol prn, Robitussin DM for cough Intractable nausea/vomiting-Reglan 5mg q4h prn, Protonix q24hr Hypothyroidism-resume levothyroxine Patient states continued nausea, dry heaving throughout the day. Patient also states that she feels weak. Patient to be discharged home tomorrow pending nauseavomiting. <Ricco Sykes - Last Filed: 05/09/21 15:34> - Patient Data Vitals - Most Recent: Last Vital Signs Temp 35.8 C L 05/09/21 09:36 Pulse 65 05/09/21 09:36 Resp 20 05/09/21 09:36 BP 130/60 05/09/21 09:36 Pulse Ox 95 05/09/21 09:36 I&O - Last 24 Hours: Intake & Output 05/09/21 05/09/21 05/09/21 06:59 14:59 22:59 Intake Total 500 Output Total 400 Balance 100 Lab Results Last 24 Hours: Laboratory Results - last 24 hr 05/09/21 05/09/21 Range/Units 05:30 05:30 WBC 5.32 (4.0-11.0) K/uL RBC 4.47 (4.30-5.90) M/uL Hgb 13.6 (12.0-16.0) g/dL Hct 39.2 (36.0-46.0) % MCV 87.7 (80.0-98.0) fL MCH 30.4 (27.0-32.0) pg MCHC 34.7 (31.0-37.0) g/dL RDW Std Deviation 43.7 (28.0-62.0) fl RDW Coeff of Hiral 14 (11.0-15.0) % Plt Count 210 (150-400) K/uL MPV 9.20 (7.40-12.00) fL Neut % (Auto) 62.4 (48.0-80.0) % Lymph % (Auto) 28.2 (16.0-40.0) % [place] % (Auto) 9.2 (0.0-15.0) % Eos % (Auto) 0.0 (0.0-7.0) % Baso % (Auto) 0.2 (0.0-1.5) % Neut # (Auto) 3.3 (1.4-5.7) K/uL Lymph # (Auto) 1.5 (0.6-2.4) K/uL [place] # (Auto) 0.5 (0.0-0.8) K/uL Eos # (Auto) 0.0 (0.0-0.7) K/uL Baso # (Auto) 0.0 (0.0-0.1) K/uL Nucleated RBC % 0.0 /100WBC Nucleated RBCs # 0 K/uL Sodium 142 (136-145) mmol/L Potassium 3.4 L (3.5-5.1) mmol/L Chloride 104 (98-107) mmol/L Carbon Dioxide 28.5 (21.0-32.0) mmol/L BUN 7 (7.0-18.0) mg/dL Creatinine 0.5 L (0.6-1.0) mg/dL Est Cr Clr Drug Dosing 90.32 mL/min Estimated GFR (MDRD) > 60.0 ml/min Glucose 93 (74-106) mg/dL Calcium 7.5 L (8.5-10.1) mg/dL Magnesium 1.9 (1.8-2.4) mg/dL Med Orders - Current: Current Medications Discontinued Medications Acetaminophen (Acetaminophen 325 Mg Tab) 650 mg PO Q4H PRN PRN Reason: Pain (Mild 1-3)/fever Last Admin: 05/08/21 22:22 Dose: 650 mg Documented by: Albuterol/Ipratropium (Albuterol/Ipratropium 3.0-0.5 Mg/3 Ml Neb Soln) 3 ml NEB Q4HRRT PRN PRN Reason: Shortness of Breath Cholecalciferol (Cholecalciferol (Vitamin D3) 25 Mcg Tab) 50 mcg PO DAILY [facility] Last Admin: 05/08/21 09:59 Dose: 50 mcg Documented by: Diphenhydramine HCl (Diphenhydramine 50 Mg/Ml Sdv) 25 mg IVPUSH ONETIME ONE Stop: 05/07/21 14:50 Last Admin: 05/07/21 15:08 Dose: 25 mg Documented by: Enoxaparin Sodium (Enoxaparin 40 Mg/0.4 Ml Syringe) 40 mg SUBCUT Q24H [facility] Last Admin: 05/08/21 15:11 Dose: 40 mg Documented by: Guaifenesin/Dextromethorphan (Guaifenesin/Dextromethorphan 100-10 Mg/5 Ml Soln 10 Ml Cup) 10 ml PO Q4H PRN PRN Reason: Cough Dextrose/Lactated Ringer's (Dextrose 5%-Lactated Ringers) 1,000 mls @ 999 mls/hr IV ASDIRECTED [facility] Last Admin: 05/06/21 11:39 Dose: 999 mls/hr Documented by: Lactated Ringer's (Ringers, Lactated) 1,000 mls @ 150 mls/hr IV ASDIRECTED [facility] Last Admin: 05/06/21 15:51 Dose: 150 mls/hr Documented by: Ketorolac Tromethamine (Ketorolac 15 Mg/Ml Sdv) 15 mg IVPUSH ONETIME ONE Stop: 05/06/21 10:39 Last Admin: 05/06/21 11:39 Dose: 15 mg Documented by: Ketorolac Tromethamine (Ketorolac 30 Mg/Ml Sdv) 30 mg IVPUSH ONETIME ONE Stop: 05/07/21 14:49 Last Admin: 05/07/21 15:09 Dose: 30 mg Documented by: Metoclopramide HCl (Metoclopramide 10 Mg/2 Ml Sdv) 5 mg IVPUSH ONETIME ONE Stop: 05/07/21 14:50 Last Admin: 05/07/21 15:08 Dose: 5 mg Documented by: Metoclopramide HCl (Metoclopramide 10 Mg/2 Ml Sdv) 5 mg IVPUSH Q4H PRN PRN Reason: Nausea/Vomiting Last Admin: 05/09/21 06:51 Dose: 5 mg Documented by: Ondansetron HCl (Ondansetron 4 Mg/2 Ml Sdv) 4 mg IVPUSH Q4H PRN PRN Reason: Nausea/Vomiting Last Admin: 05/08/21 10:02 Dose: 4 mg Documented by: Pantoprazole Sodium (Pantoprazole 40 Mg Vial) 40 mg IV Q24H [facility] Last Admin: 05/08/21 15:10 Dose: 40 mg Documented by: Potassium Chloride (Potassium Chloride 20 Meq Tab.Er) 20 meq PO ONETIME ONE Stop: 05/09/21 09:01 - Patient Data Lab Results Last 24 hrs: Laboratory Results - last 24 hr 05/09/21 05/09/21 Range/Units 05:30 05:30 WBC 5.32 (4.0-11.0) K/uL RBC 4.47 (4.30-5.90) M/uL Hgb 13.6 (12.0-16.0) g/dL Hct 39.2 (36.0-46.0) % MCV 87.7 (80.0-98.0) fL MCH 30.4 (27.0-32.0) pg MCHC 34.7 (31.0-37.0) g/dL RDW Std Deviation 43.7 (28.0-62.0) fl RDW Coeff of Hiral 14 (11.0-15.0) % Plt Count 210 (150-400) K/uL MPV 9.20 (7.40-12.00) fL Neut % (Auto) 62.4 (48.0-80.0) % Lymph % (Auto) 28.2 (16.0-40.0) % [place] % (Auto) 9.2 (0.0-15.0) % Eos % (Auto) 0.0 (0.0-7.0) % Baso % (Auto) 0.2 (0.0-1.5) % Neut # (Auto) 3.3 (1.4-5.7) K/uL Lymph # (Auto) 1.5 (0.6-2.4) K/uL [place] # (Auto) 0.5 (0.0-0.8) K/uL Eos # (Auto) 0.0 (0.0-0.7) K/uL Baso # (Auto) 0.0 (0.0-0.1) K/uL Nucleated RBC % 0.0 /100WBC Nucleated RBCs # 0 K/uL Sodium 142 (136-145) mmol/L Potassium 3.4 L (3.5-5.1) mmol/L Chloride 104 (98-107) mmol/L Carbon Dioxide 28.5 (21.0-32.0) mmol/L BUN 7 (7.0-18.0) mg/dL Creatinine 0.5 L (0.6-1.0) mg/dL Est Cr Clr Drug Dosing 90.32 mL/min Estimated GFR (MDRD) > 60.0 ml/min Glucose 93 (74-106) mg/dL Calcium 7.5 L (8.5-10.1) mg/dL Magnesium 1.9 (1.8-2.4) mg/dL Result Diagrams: 05/09/21 05:30 05/09/21 05:30 Sepsis Event Note - Focused Exam Vital Signs: Vital Signs Temp Pulse Resp BP Pulse Ox 05/09/21 09:36 35.8 C L 65 20 130/60 95 05/09/21 04:10 36.7 C 60 20 134/63 95 - Plan Plan:: I have seen and evaluated the patient and agree with the residents note unless specified in my note
[2021-05-08] MEDS: Metoclopramide 10 MG/2 ML SDV IVPUSH PRN (15:09)
[2021-05-08] MEDS: Pantoprazole 40 MG Vial IV SCH (15:10)
[2021-05-08] MEDS: Enoxaparin 40 MG/0.4 ML Syringe SUBCUT SCH (15:11)
[2021-05-09 06:26] LABS: BLOOD UREA NITROGEN,BUN 7 mg/dL (7.0-18.0); CARBON DIOXIDE,CO2 28.5 mmol/L (21.0-32.0); CHLORIDE,CL 104 mmol/L (98-107); GLUCOSE RANDOM 93 mg/dL (74-106); POTASSIUM,K 3.4 mmol/L (3.5-5.1); SODIUM,NA 142 mmol/L (136-145)
[2021-05-09] MEDS: Metoclopramide 10 MG/2 ML SDV IVPUSH PRN (06:51)
[2021-05-09] MEDS ORDERED: Potassium Chloride 20 MEQ Tab.ER PO ONE (09:00)
--- NOTE | 2021-05-09 11:49 | PCM.DCSUM1 ---
Discharge Summary - Hospital Course Free Text/Narrative:: 65-year-old female presents to the ED with complaints of fatigue and poor oral intake. Patient admitted to med/surg for intractable nausea and vomiting, dehydration, COVID-19 infection on 05-06-21. Patient states attending her 's family reunion "over a week ago " and may have gotten covid infection at that time. On admission patient states 10-day history of headache, chills, vomiting, diarrhea, cough, headache. Patient also states poor appetite with weight loss. Patient states yesterday she had 3 bites of a sandwich which she had to "force down". Patient has been tolerating oral liquids but states that not drinking enough. Patient denies chest pain, shortness of breath. Patient's only past medical includes hypothyroidism treated with levothyroxine. Patient has no recent history of smoking. Patient denies cardiovascular, respiratory, diseases. ER course- Patient received 1 L LR, 1 L D5-LR, IV Toradol 15mg X 1. Laboratory- WBC 4.9, hemoglobin 13.9, platelet 149, hematocrit 40.2, sodium 141, potassium 3.5, BUN 9, creatinine 0.6, magnesium 2.1, AST 40, ALT 39, albumin 2.9, TSH 3.38. Chest x-ray impression- Low lung volumes, right hemidiaphragm elevated. Right peripheral lower lobe increased attenuation could be related to overlying soft tissue versus infiltrate. Patient discharged in stable condition to home on 05-09-21. At discharge patient states significant reduction nausea, no vomiting. Patient able to tolerate diet. Patient discharged home on Robitussin cough syrup and Zofran for nausea vomiting. - Discharge Data Discharge Date: 05/09/21 Discharge Disposition: Home, Self-Care 01 Condition: Stable - Referral to Home Health Primary Care Physician: PCP Not In Area - Discharge Diagnosis/Problem(s) (1) Hypothyroidism SNOMED Code(s): 85521802 ICD Code: E03.9 - HYPOTHYROIDISM, UNSPECIFIED Status: Acute Current Visit: Yes (2) Nausea & vomiting SNOMED Code(s): 82760573 ICD Code: R11.2 - NAUSEA WITH VOMITING, UNSPECIFIED Status: Acute Current Visit: Yes (3) Dehydration SNOMED Code(s): 14172531 ICD Code: E86.0 - DEHYDRATION Status: Acute Current Visit: Yes (4) COVID-19 SNOMED Code(s): 177476470 ICD Code: U07.1 - COVID-19 Status: Acute Current Visit: Yes - Patient Instructions Diet: Usual Diet as Tolerated Activity: As Tolerated Showering/Bathing: May Shower Notify Provider of: Fever, Increased Pain, Nausea and/or Vomiting Other/Special Instructions: Notify primary care physician if experiencing nausea, vomiting, diarrhea, headaches, poor food intake. - Discharge Plan *PRESCRIPTION DRUG MONITORING PROGRAM REVIEWED*: No *COPY OF PRESCRIPTION DRUG MONITORING REPORT IN PATIENT EUNICE: No Prescriptions/Med Rec: Dextromethorphan/guaiFENesin [Robitussin DM] 5 ml PO Q4H PRN #120 ml PRN Reason: Cough Ondansetron [Zofran ODT] 4 mg PO Q6H PRN #12 tab.dis PRN Reason: Nausea/Vomiting Home Medications: Home Meds Levothyroxine [Synthroid] 50 mcg PO DAILY 05/06/21 [History] Dextromethorphan/guaiFENesin [Robitussin DM] 5 ml PO Q4H PRN #120 ml 05/09/21 [Rx] Ondansetron [Zofran ODT] 4 mg PO Q6H PRN #12 tab.dis 05/09/21 [Rx] Patient Handouts: Ondansetron tablets, 10 Things You Can Do to Manage Your COVID-19 Symptoms at Home - [facility] [place] (02/20/2021), COVID-19: How to Protect Yourself and Others - [facility] [place]], Symptoms of COVID-19 - [facility] [place] 2[place] (09/29/2020), COVID-19: Quarantine vs. Isolation - [facility] [place] 2[place] (07/24/2020), COVID-19: What to Do If You Are Sick- [facility] [place] 2[place] (10/22/2020) Forms: ED Department Discharge Referrals: PCP,Not In Area [Primary Care Provider] - - Discharge Summary/Plan Comment DC Time >30 min.: Yes Total # of Minutes for Discharge Time: 30 - General Info Date of Service: 05/09/21 Subjective Update: Patient states that she feels much better this morning. Patient states less fatigue, increased appetite, less nausea. Patient denies chest pain, fever, chills, shortness of breath. - Review of Systems General: Denies: Fever Pulmonary: Reports: Cough. Denies: Shortness of Breath Cardiovascular: Denies: Chest Pain, Palpitations, Dyspnea on Exertion, Edema Gastrointestinal: Denies: Abdominal Pain, Decreased Appetite, Nausea, Vomiting Neurological: Denies: Confusion, Dizziness, Headache Psychiatric: Denies: Confusion - Patient Data Vitals - Most Recent: Last Vital Signs Temp 96.5 F L 05/09/21 09:36 Pulse 65 05/09/21 09:36 Resp 20 05/09/21 09:36 BP 130/60 05/09/21 09:36 Pulse Ox 95 05/09/21 09:36 Weight - Most Recent: 151 lb 11.2 oz I&O - Last 24 hours: Intake & Output 05/08/21 05/09/21 05/09/21 22:59 06:59 14:59 Intake Total 880 500 Output Total 650 400 Balance 230 100 Lab Results - Last 24 hrs: Laboratory Results - last 24 hr 05/09/21 05/09/21 Range/Units 05:30 05:30 WBC 5.32 (4.0-11.0) K/uL RBC 4.47 (4.30-5.90) M/uL Hgb 13.6 (12.0-16.0) g/dL Hct 39.2 (36.0-46.0) % MCV 87.7 (80.0-98.0) fL MCH 30.4 (27.0-32.0) pg MCHC 34.7 (31.0-37.0) g/dL RDW Std Deviation 43.7 (28.0-62.0) fl RDW Coeff of Hiral 14 (11.0-15.0) % Plt Count 210 (150-400) K/uL MPV 9.20 (7.40-12.00) fL Neut % (Auto) 62.4 (48.0-80.0) % Lymph % (Auto) 28.2 (16.0-40.0) % [place] % (Auto) 9.2 (0.0-15.0) % Eos % (Auto) 0.0 (0.0-7.0) % Baso % (Auto) 0.2 (0.0-1.5) % Neut # (Auto) 3.3 (1.4-5.7) K/uL Lymph # (Auto) 1.5 (0.6-2.4) K/uL [place] # (Auto) 0.5 (0.0-0.8) K/uL Eos # (Auto) 0.0 (0.0-0.7) K/uL Baso # (Auto) 0.0 (0.0-0.1) K/uL Nucleated RBC % 0.0 /100WBC Nucleated RBCs # 0 K/uL Sodium 142 (136-145) mmol/L Potassium 3.4 L (3.5-5.1) mmol/L Chloride 104 (98-107) mmol/L Carbon Dioxide 28.5 (21.0-32.0) mmol/L BUN 7 (7.0-18.0) mg/dL Creatinine 0.5 L (0.6-1.0) mg/dL Est Cr Clr Drug Dosing 90.32 mL/min Estimated GFR (MDRD) > 60.0 ml/min Glucose 93 (74-106) mg/dL Calcium 7.5 L (8.5-10.1) mg/dL Magnesium 1.9 (1.8-2.4) mg/dL Med Orders - Current: Current Medications Acetaminophen (Acetaminophen 325 Mg Tab) 650 mg PO Q4H PRN PRN Reason: Pain (Mild 1-3)/fever Last Admin: 05/08/21 22:22 Dose: 650 mg Documented by: Albuterol/Ipratropium (Albuterol/Ipratropium 3.0-0.5 Mg/3 Ml Neb Soln) 3 ml NEB Q4HRRT PRN PRN Reason: Shortness of Breath Cholecalciferol (Cholecalciferol (Vitamin D3) 25 Mcg Tab) 50 mcg PO DAILY [facility] Last Admin: 05/08/21 09:59 Dose: 50 mcg Documented by: Enoxaparin Sodium (Enoxaparin 40 Mg/0.4 Ml Syringe) 40 mg SUBCUT Q24H [facility] Last Admin: 05/08/21 15:11 Dose: 40 mg Documented by: Guaifenesin/Dextromethorphan (Guaifenesin/Dextromethorphan 100-10 Mg/5 Ml Soln 10 Ml Cup) 10 ml PO Q4H PRN PRN Reason: Cough Metoclopramide HCl (Metoclopramide 10 Mg/2 Ml Sdv) 5 mg IVPUSH Q4H PRN PRN Reason: Nausea/Vomiting Last Admin: 05/09/21 06:51 Dose: 5 mg Documented by: Pantoprazole Sodium (Pantoprazole 40 Mg Vial) 40 mg IV Q24H [facility] Last Admin: 05/08/21 15:10 Dose: 40 mg Documented by: Discontinued Medications Diphenhydramine HCl (Diphenhydramine 50 Mg/Ml Sdv) 25 mg IVPUSH ONETIME ONE Stop: 05/07/21 14:50 Last Admin: 05/07/21 15:08 Dose: 25 mg Documented by: Dextrose/Lactated Ringer's (Dextrose 5%-Lactated Ringers) 1,000 mls @ 999 mls/hr IV ASDIRECTED [facility] Last Admin: 05/06/21 11:39 Dose: 999 mls/hr Documented by: Lactated Ringer's (Ringers, Lactated) 1,000 mls @ 150 mls/hr IV ASDIRECTED [facility] Last Admin: 05/06/21 15:51 Dose: 150 mls/hr Documented by: Ketorolac Tromethamine (Ketorolac 15 Mg/Ml Sdv) 15 mg IVPUSH ONETIME ONE Stop: 05/06/21 10:39 Last Admin: 05/06/21 11:39 Dose: 15 mg Documented by: Ketorolac Tromethamine (Ketorolac 30 Mg/Ml Sdv) 30 mg IVPUSH ONETIME ONE Stop: 05/07/21 14:49 Last Admin: 05/07/21 15:09 Dose: 30 mg Documented by: Metoclopramide HCl (Metoclopramide 10 Mg/2 Ml Sdv) 5 mg IVPUSH ONETIME ONE Stop: 05/07/21 14:50 Last Admin: 05/07/21 15:08 Dose: 5 mg Documented by: Ondansetron HCl (Ondansetron 4 Mg/2 Ml Sdv) 4 mg IVPUSH Q4H PRN PRN Reason: Nausea/Vomiting Last Admin: 05/08/21 10:02 Dose: 4 mg Documented by: Potassium Chloride (Potassium Chloride 20 Meq Tab.Er) 20 meq PO ONETIME ONE Stop: 05/09/21 09:01 - Exam Quality Assessment: Denies: Supplemental Oxygen General: Reports: Alert, Oriented Lungs: Reports: Clear to Auscultation, Normal Respiratory Effort Cardiovascular: Reports: Regular Rate, Regular Rhythm GI/Abdominal Exam: Soft, Non-Tender, No Distention Psy/Mental Status: Reports: Alert
== END 2021-05-09 11:45 | disposition home or self-care (01) ==
LOC: MW.ED 10:22 → MW.MS 13:19
PROVIDERS: ADMIT Internal Medicine; ATTEND Internal Medicine
DX: U07.1 COVID-19 (principal); R11.2 Nausea with vomiting, unspecified; E86.0 Dehydration; E03.9 Hypothyroidism, unspecified; Z79.890 Hormone replacement therapy; Z79.899 Other long term (current) drug therapy
CPT/HCPCS: 0240U; 36415; 71045; 80048; 80053; 82306; 83690; 83735; 84443; 84484; 85025; 96374; 96375; 99285; A9270; C9113; J1200; J1650; J1885; J2405; J2765; J7120; J7121